=== PATIENT | male | born 1995 | race Caucasian/White ===

== ENCOUNTER 2017-05-15 03:34 | Emergency (ER) | payer BC ==
[~2017-05-15] VITALS: Ht 165.1 cm; Wt 83.9 kg
[2017-05-15 03:38] VITALS: BP_SYST 128
[2017-05-15 03:54] LABS: BILIRUBIN,URINE NEGATIVE (NEGATIVE); BLOOD, URINE 3+ (NEGATIVE); CLARITY/URINE CLEAR (CLEAR); COLOR,URINE YELLOW (YELLOW); GLUCOSE,URINE NEGATIVE (NEGATIVE); KETONES,URINE NEGATIVE (NEGATIVE); LEUKOCYTE ESTERASE ,URINE NEGATIVE (NEGATIVE); NITRITE, URINE NEGATIVE (NEGATIVE); PROTEIN URINE NEGATIVE (NEGATIVE); UROBILINOGEN,URINE 0.2 (0.2-1.0)
[2017-05-15] MEDS ORDERED: NACL 0.9% 1,000 ML IV ONE (03:57)
[2017-05-15] MEDS ORDERED: ONDANSETRON HCL 4 MG/2 ML VIAL IVP ONE (04:00)
[2017-05-15] MEDS ORDERED: MORPHINE 2 MG/ML INJ. SYRINGE IVP ONE (04:00)
[2017-05-15 04:09] LABS: BACTERIA,URINE RARE /HPF (None Seen); RBC,URINE 0-3 /HPF (0-3)
[2017-05-15 04:13] LABS: CALCIUM 9.2 mg/dL (8.4-11.0); CREATININE 1.09 mg/dL (0.55-1.30); POTASSIUM 3.5 mmol/L (3.5-5.1)
[2017-05-15 04:24] LABS: ALBUMIN 3.6 g/dL (3.4-4.8); TOTAL BILIRUBIN 0.5 mg/dL (0.0-1.0)
[2017-05-15 04:38] LABS: EOSINOPHILS # (AUTO) 0.3 K/uL (0.0-0.4); LYMPHOCYTES # (AUTO) 3.3 K/uL (1.0-5.5); MONOCYTES # (AUTO) 0.9 K/uL (0.0-1.0)
[2017-05-15 04:41] LABS: BASOPHILS % (AUTO) 0.3 % (0.0-2.0); EOSINOPHILS % (AUTO) 2.9 % (0.0-4.0); HEMATOCRIT 42.2 % (36-54); HEMOGLOBIN 13.6 g/dL (14.0-18.0); LYMPHOCYTES % (AUTO) 33.2 % (20.5-51.5); MEAN CORPUSCULAR HEMOGLOBIN 23 pg (27-31); MEAN CORPUSCULAR HGB CONC 32 % (32-36); MEAN CORPUSCULAR VOLUME 73 fL (79.0-98.0); MONOCYTES % (AUTO) 8.8 % (1.7-9.3); NEUTROPHILS # (AUTO) 5.3 K/uL (1.8-7.7); NEUTROPHILS % (AUTO) 54.8 % (40.0-70.0); PLATELET COUNT (AUTO) 264 K/uL (130-430); RED BLOOD CELL COUNT(AUTO) 5.82 MIL/uL (4.2-6.2); WHITE BLOOD COUNT (AUTO) 9.8 K/uL (4.8-10.8)
[2017-05-15 06:10] VITALS: BP_SYST 131
== END 2017-05-15 06:10 | disposition home or self-care (01) ==
LOC: SED 03:34
DX: K51.90 Ulcerative colitis, unspecified, without complications (principal)
CPT/HCPCS: 36415; 74176; 80053; 81000; 85025; 96361; 96374; 96375; 99285; J2270; J2405; J7030

== ENCOUNTER 2020-04-19 11:57 | Emergency (ER) | payer BC ==
[~2020-04-19] VITALS: Ht 165.1 cm; Wt 90.7 kg
[2020-04-19 12:35] VITALS: BP_SYST 145
[2020-04-19] MEDS ORDERED: LORazepam 1 MG TABLET PO ONE (12:45)
[2020-04-19 13:05] LABS: BASOPHILS % (AUTO) 0.2 % (0.0-2.0); C-REACTIVE PROTEIN QUANT 4.8 mg/dL (0-0.5); CALCIUM 7.8 mg/dL (8.4-11.0); CREATININE 1.04 mg/dL (0.55-1.30); EOSINOPHILS % (AUTO) 0.1 % (0.0-4.0); HEMATOCRIT 39.8 % (36-54); HEMOGLOBIN 12.4 g/dL (14.0-18.0); LYMPHOCYTES # (AUTO) 1.4 K/uL (1.0-5.5); LYMPHOCYTES % (AUTO) 22.2 % (20.5-51.5); MEAN CORPUSCULAR HEMOGLOBIN 21 pg (27-31); MEAN CORPUSCULAR HGB CONC 31 % (32-36); MEAN CORPUSCULAR VOLUME 69 fL (79.0-98.0); MONOCYTES # (AUTO) 0.8 K/uL (0.0-1.0); MONOCYTES % (AUTO) 13.2 % (1.7-9.3); NEUTROPHILS % (AUTO) 64.3 % (40.0-70.0); PLATELET COUNT (AUTO) 204 K/uL (130-430); POTASSIUM 3.3 mmol/L (3.5-5.1); RED BLOOD CELL COUNT(AUTO) 5.77 MIL/uL (4.2-6.2); RED CELL DISTRIBUTION WIDTH 17.3 % (9.0-15.0); WHITE BLOOD COUNT (AUTO) 6.3 K/uL (4.8-10.8)
[2020-04-19 15:21] VITALS: BP_SYST 145
== END 2020-04-19 15:22 | disposition home or self-care (01) ==
LOC: SED 11:57
DX: R50.9 Fever, unspecified (principal)
CPT/HCPCS: 36415; 71045; 76376; 80048; 85025; 86140; 86886; 86900; 86901; 99285

== ENCOUNTER 2020-04-21 10:45 | Emergency (ER) | payer BC, SELFPAY ==
[~2020-04-21] VITALS: Ht 165.1 cm; Wt 90.7 kg
[2020-04-21 11:10] VITALS: BP_SYST 129
[2020-04-21 12:11] VITALS: BP_SYST 129
== END 2020-04-21 12:11 | disposition home or self-care (01) ==
LOC: SED 10:45
DX: U07.1 COVID-19 (principal); J18.9 Pneumonia, unspecified organism
CPT/HCPCS: 99281

== ENCOUNTER 2020-04-23 04:04 | Emergency (ER) | payer BC, SELFPAY ==
[~2020-04-23] VITALS: Ht 165.1 cm; Wt 90.7 kg
[2020-04-23 04:05] VITALS: BP_SYST 112
--- NOTE | 2020-04-23 04:18 | NUR ---
Patient to ER bed 8 to gown for evaluation. Side rails up. Report given to Hima ARREAGA.
--- NOTE | 2020-04-23 04:40 | NUR ---
ED MD BONDS AT BEDSIDE EVALUATING PT
--- NOTE | 2020-04-23 04:43 | NUR ---
COVID SWAB PERFORMED AT BEDSIDE PT TOLERATED WELL SAMPLE SENT TO LAB AWAITING RESULTS
[2020-04-23] MEDS ORDERED: AZITHROMYCIN 500 MG/VIAL (ZITHROMAX) IV ONE (04:54)
[2020-04-23 04:59] LABS: BASOPHILS % (AUTO) 0.4 % (0.0-2.0); HEMATOCRIT 39.1 % (36-54); HEMOGLOBIN 12.5 g/dL (14.0-18.0); LYMPHOCYTES # (AUTO) 1.2 K/uL (1.0-5.5); LYMPHOCYTES % (AUTO) 15.7 % (20.5-51.5); MEAN CORPUSCULAR HEMOGLOBIN 22 pg (27-31); MEAN CORPUSCULAR HGB CONC 32 % (32-36); MONOCYTES # (AUTO) 0.7 K/uL (0.0-1.0); MONOCYTES % (AUTO) 9.7 % (1.7-9.3); NEUTROPHILS # (AUTO) 5.6 K/uL (1.8-7.7); NEUTROPHILS % (AUTO) 74.2 % (40.0-70.0); PLATELET COUNT (AUTO) 216 K/uL (130-430); RED CELL DISTRIBUTION WIDTH 16.9 % (9.0-15.0); WHITE BLOOD COUNT (AUTO) 7.6 K/uL (4.8-10.8)
[2020-04-23] MEDS ORDERED: AZITHROMYCIN 500 MG in NS 250 ML IV ONE (05:00)
[2020-04-23] MEDS ORDERED: ACETAMINOPHEN 500 MG TABLET PO ONE (05:00)
[2020-04-23] MEDS ORDERED: cefTRIAXone 1 GM IVPB PREMIX 50 ML IV ONE (05:00)
[2020-04-23 05:08] LABS: CALCIUM 8.4 mg/dL (8.4-11.0); CREATININE 0.97 mg/dL (0.55-1.30); POTASSIUM 3.7 mmol/L (3.5-5.1)
[2020-04-23 05:09] LABS: MEAN CORPUSCULAR VOLUME 67 fL (79.0-98.0)
[2020-04-23 05:14] LABS: INR 1.2 (0.80-1.20); PROTHROMBIN TIME 12.4 SECS (9.5-12.5)
[2020-04-23 05:15] LABS: ALBUMIN 3.1 g/dL (3.4-4.8); TOTAL BILIRUBIN 0.4 mg/dL (0.0-1.0)
--- NOTE | 2020-04-23 05:39 | NUR ---
PT TO BEDSIDE COMMODE AMBULATES WELL WITHOUT ASSISTANCE
[2020-04-23] MEDS ORDERED: methylPREDNISolone SOD SUCC 40 MG/ML VIAL ONE (05:41)
[2020-04-23 05:42] LABS: BILIRUBIN,URINE NEGATIVE (NEGATIVE); BLOOD, URINE 2+ (NEGATIVE); CLARITY/URINE CLEAR (CLEAR); COLOR,URINE YELLOW (YELLOW); GLUCOSE,URINE NEGATIVE (NEGATIVE); KETONES,URINE 3+ (NEGATIVE); LEUKOCYTE ESTERASE ,URINE NEGATIVE (NEGATIVE); NITRITE, URINE NEGATIVE (NEGATIVE); PROTEIN URINE 1+ (NEGATIVE); UROBILINOGEN,URINE 0.2 (0.2-1.0)
--- NOTE | 2020-04-23 05:42 | NUR ---
PT BACK IN BED LOW AND LOCKED BED RAILS UP WILL CONTINUE TO MONITOR
[2020-04-23] MEDS ORDERED: methylPREDNISolone SOD SUCC 40 MG/ML VIAL IVP ONE (05:45)
[2020-04-23 05:49] LABS: BACTERIA,URINE FEW /HPF (None Seen)
--- NOTE | 2020-04-23 06:18 | NUR ---
RT AT BEDSIDE DRAWING ABG LABS
[2020-04-23] MEDS ORDERED: NS 500 ML IV ONE (06:30)
--- NOTE | 2020-04-23 06:36 | NUR ---
PT UP TO BEDSDIE COMMODE AMBULATES WELL WITHOUT ASSISTANCE VITAL SIGNS STABLE WILL CONTINUE TO MONITOR
--- NOTE | 2020-04-23 06:38 | NUR ---
PT BACK IN BED LOW AND LOCKED WITH SIDE RAILS UP
--- NOTE | 2020-04-23 06:55 | NUR ---
VEHICLE LEASING AND RENTAL MANAGER AT BEDSIDE DRAWING LABS
--- NOTE | 2020-04-23 07:09 | NUR ---
BEDSIDE REPORT GIVEN TO TESTING SPECIALISTWHITLEY SILVA WHO WILL ASSUME CARE
--- NOTE | 2020-04-23 07:10 | NUR ---
Assumed care of patient, report received from WHITLEY Yee. Pt currently up to bedside commode. V/S stable, no distress noted.
--- NOTE | 2020-04-23 08:44 | NUR ---
Dr. Yu at bedside for GI consult.
--- NOTE | 2020-04-23 09:08 | NUR ---
Patient will be admitted to care of Dr. Xiao. Admitted to Med-surg unit. Will go to room 117A. Belongings list completed. Complete and up to date summary report printed. SBAR report to be given at bedside with opportunity for questions. IV site intact and patent.
--- NOTE | 2020-04-23 09:20 | NUR ---
Pt refusing transport to [facility], would like to sign out AMA. Dr. Koehler aware and at bedside with patient.
[2020-04-23] MEDS ORDERED: MESALAMINE 400 MG CAPSULE.DR PO SCH (09:30)
[2020-04-23] MEDS ORDERED: methylPREDNISolone SOD SUCC/PF 62.5 MG/ML VIAL IVP SCH (09:30)
--- NOTE | 2020-04-23 09:40 | NUR ---
Pt will sign out AMA, declining to be admitted at this time. Dr. Koehler ordered for pt to receive BAM prior to leaving. Pt is an outpatient, not admitted to hospital. Meets criteria for BAM infusion. BAM facts sheet provided to patient, all questions answered to pt's satisfaction. Pharmacy aware of order.
--- NOTE | 2020-04-23 09:42 | NUR ---
NOTIFIED DR. SHAW PT IS LEAVING A.
[2020-04-23 13:09] VITALS: BP_SYST 120
--- NOTE | 2020-04-23 13:10 | NUR ---
Patient does not wish to proceed with medical care recommended by Dr. Koehler. Patient given information related to possible complications, up to and including , which could occur as a result of leaving hospital at this time. Patient verbalizes understanding of risks involved leaving against medical advice. Patient has signed AMA form.
== END 2020-04-23 13:10 | disposition left against medical advice (07) ==
LOC: SED 04:04 → UNDOADMIN 06:20 → SMU 06:20 → SED 13:10
DX: U07.1 COVID-19 (principal); J18.9 Pneumonia, unspecified organism
CPT/HCPCS: 36415; 36600; 71045; 80053; 81000; 82550; 82728; 82803; 83605; 83615; 83880; 84484; 85025; 85379; 85384; 85610; 85730; 86140; 87040; 87426; 93005; 96365; 96367; 96375; 99285; J0456; J0696; J1030; J7050

== ENCOUNTER 2020-04-24 00:52 | Emergency (ER) | payer BC, SELFPAY ==
[~2020-04-24] VITALS: Ht 165.1 cm; Wt 90.7 kg
[2020-04-24 01:05] VITALS: BP_SYST 139
[2020-04-24] MEDS ORDERED: LORazepam 2 MG/ML VIAL IM ONE ×2 (04:15→05:00)
[2020-04-24 06:10] VITALS: BP_SYST 130
== END 2020-04-24 06:10 | disposition home or self-care (01) ==
LOC: SED 00:52
DX: U07.1 COVID-19 (principal); J18.9 Pneumonia, unspecified organism
CPT/HCPCS: 99283; J2060

== ENCOUNTER 2020-09-07 18:04 | Emergency (ER) | payer BC, SELFPAY ==
[~2020-09-07] VITALS: Ht 165.1 cm; Wt 102.1 kg
[2020-09-07 18:05] VITALS: BP_SYST 158
[2020-09-07] MEDS ORDERED: DIPHENHYDRAMINE HCL 25 MG CAPSULE PO ONE (18:30)
[2020-09-07] MEDS ORDERED: DIPHENHYDRAMINE INJ 50 MG/ML VIAL IM ONE (18:30)
[2020-09-07] MEDS ORDERED: methylPREDNISolone SOD SUCC/PF 62.5 MG/ML VIAL IM ONE (18:30)
[2020-09-07] MEDS ORDERED: methylPREDNISolone SOD SUCC/PF 62.5 MG/ML VIAL IVP ONE (18:30)
[2020-09-07] MEDS ORDERED: PRED20TA PO ×2 (19:51→19:55)
[2020-09-07] MEDS ORDERED: DIPH25CA83 PO (19:56)
[2020-09-07 20:04] VITALS: BP_SYST 158
== END 2020-09-07 20:04 | disposition home or self-care (01) ==
LOC: SED 18:04
DX: T63.441A Toxic effect of venom of bees, accidental (unintentional), initial encounter (principal); T78.2XXA Anaphylactic shock, unspecified, initial encounter; X58.XXXA Exposure to other specified factors, initial encounter
CPT/HCPCS: 96372; 99283; J2930; Q0163

== ENCOUNTER 2020-09-19 09:22 | Emergency (ER) | payer BC, SELFPAY ==
[~2020-09-19] VITALS: Ht 165.1 cm; Wt 90.7 kg
[~2020-09-19 09:22] MED LIST: DIPH25CA83 PO; PRED20TA PO
--- NOTE | 2020-09-19 09:25 | NUR ---
Placed in room 1 . Placed on library monitor, blood pressure machine and pulse oximeter. To gown for exam. Side rails up.
[2020-09-19 09:37] VITALS: BP_SYST 142
--- NOTE | 2020-09-19 09:38 | NUR ---
ER Dr. HASKINS at bedside examining patient.
--- NOTE | 2020-09-19 09:45 | NUR ---
XR AT BEDSIDE
--- NOTE | 2020-09-19 09:48 | NUR ---
PT CAME TO ER FOR RIGHT HAND PAIN. PT STRUCK A WALL WITH FULL FORCE. PT HAVING TROUBLE MOVING 5TH DIGIT.
[2020-09-19] MEDS ORDERED: IBUP-1969 PO (10:45)
[2020-09-19] MEDS ORDERED: ACET325T53 PO (10:45)
[2020-09-19] MEDS ORDERED: ACETAMINOPHEN 325 MG TABLET PO ONE (10:45)
[2020-09-19] MEDS ORDERED: IBUPROFEN 600 MG TABLET PO ONE (10:45)
--- NOTE | 2020-09-19 11:15 | NUR ---
Patient given written and verbal discharge instructions and verbalizes understanding. ER MD discussed with patient the results and treatment provided. Patient in stable condition. ID arm band removed. Rx of ACETAMINOPHEN, IBUPROFEN given. Patient educated on pain management and to follow up with PMD. Pain Scale 5/10. Opportunity for questions provided and answered. Medication side effect fact sheet provided.
[2020-09-19 11:16] VITALS: BP_SYST 114
== END 2020-09-19 11:15 | disposition home or self-care (01) ==
LOC: SED 09:22
DX: S62.306A Unspecified fracture of fifth metacarpal bone, right hand, initial encounter for closed fracture (principal); W22.01XA Walked into wall, initial encounter; Y93.89 Activity, other specified; Y92.89 Other specified places as the place of occurrence of the external cause; Y99.8 Other external cause status
CPT/HCPCS: 99284

== ENCOUNTER 2021-05-01 23:21 | Emergency (ER) | payer BC ==
[~2021-05-01] VITALS: Ht 165.1 cm; Wt 104.3 kg
[~2021-05-01 23:21] MED LIST changes: +ACET325T53 PO; +IBUP-1969 PO
[2021-05-01 23:35] VITALS: BP_SYST 119
--- NOTE | 2021-05-01 23:46 | NUR ---
Patient ambulatory to bed 1 for evaluation and treatment
--- NOTE | 2021-05-01 23:50 | NUR ---
ER at bedside examining patient.
[2021-05-02] MEDS ORDERED: MORPHINE 4 MG INJ. 4 MG/ML VIAL IM ONE
[2021-05-02] MEDS ORDERED: NACL 0.9% 1,000 ML IV ONE (00:15)
[2021-05-02 00:27] LABS: BASOPHILS # (AUTO) 0.1 K/uL (0.0-0.2); BASOPHILS % (AUTO) 0.7 % (0.0-2.0); EOSINOPHILS # (AUTO) 0.1 K/uL (0.0-0.4); EOSINOPHILS % (AUTO) 0.7 % (0.0-4.0); HEMATOCRIT 43.9 % (36-54); HEMOGLOBIN 14.1 g/dL (14.0-18.0); LYMPHOCYTES # (AUTO) 0.9 K/uL (1.0-5.5); MEAN CORPUSCULAR HEMOGLOBIN 25 pg (27-31); MEAN CORPUSCULAR HGB CONC 32 % (32-36); MEAN CORPUSCULAR VOLUME 76 fL (79.0-98.0); MONOCYTES % (AUTO) 7.7 % (1.7-9.3); NEUTROPHILS # (AUTO) 10.6 K/uL (1.8-7.7); NEUTROPHILS % (AUTO) 83.9 % (40.0-70.0); PLATELET COUNT (AUTO) 246 K/uL (130-430); RED BLOOD CELL COUNT(AUTO) 5.77 MIL/uL (4.2-6.2); RED CELL DISTRIBUTION WIDTH 15.4 % (9.0-15.0); WHITE BLOOD COUNT (AUTO) 12.7 K/uL (4.8-10.8)
[2021-05-02 00:42] LABS: CALCIUM 8.8 mg/dL (8.4-11.0); CREATININE 0.97 mg/dL (0.55-1.30); POTASSIUM 3.9 mmol/L (3.5-5.1)
[2021-05-02] MEDS ORDERED: KETOROLAC TROMETHAMINE 30 MG VIAL IVP ONE (00:45)
[2021-05-02 00:47] LABS: ALBUMIN 3.7 g/dL (3.4-4.8); TOTAL BILIRUBIN 0.4 mg/dL (0.0-1.0)
[2021-05-02] MEDS ORDERED: TAMS-11 PO (01:30)
[2021-05-02] MEDS ORDERED: HYDR-3917 PO (01:30)
[2021-05-02] MEDS ORDERED: IBUP-1971 PO (01:30)
[2021-05-02 01:39] LABS: BILIRUBIN,URINE 1+ (NEGATIVE); BLOOD, URINE 3+ (NEGATIVE); CLARITY/URINE CLEAR (CLEAR); COLOR,URINE YELLOW (YELLOW); GLUCOSE,URINE TRACE (NEGATIVE); KETONES,URINE TRACE (NEGATIVE); LEUKOCYTE ESTERASE ,URINE NEGATIVE (NEGATIVE); NITRITE, URINE POSITIVE (NEGATIVE); PROTEIN URINE 2+ (NEGATIVE); UROBILINOGEN,URINE 0.2 (0.2-1.0)
[2021-05-02] MEDS ORDERED: CIPR500T5 PO (01:47)
[2021-05-02] MEDS ORDERED: MORPHINE 4 MG INJ. 4 MG/ML VIAL IVP ONE (02:00)
--- NOTE | 2021-05-02 02:40 | NUR ---
Patient given written and verbal discharge instructions and verbalizes understanding. ER MD discussed with patient the results and treatment provided. Patient in stable condition. ID arm band removed. IV catheter removed intact and dressing applied, no active bleeding. Rx of given. Patient educated on pain management and to follow up with PMD. Pain Scale . Opportunity for questions provided and answered. Medication side effect fact sheet provided.
[2021-05-02 04:47] LABS: BACTERIA,URINE FEW /HPF (None Seen); WBC,URINE 0-3 /HPF (0-3)
[2021-05-02 04:48] LABS: MUCUS,URINE None Seen /LPF (None Seen)
[2021-05-02 07:21] VITALS: BP_SYST 119
== END 2021-05-02 02:40 | disposition home or self-care (01) ==
LOC: SED 23:21
DX: N20.0 Calculus of kidney (principal); N39.0 Urinary tract infection, site not specified; Z79.899 Other long term (current) drug therapy
CPT/HCPCS: 36415; 74176; 76376; 80053; 81000; 83690; 85025; 87086; 96361; 96372; 96374; 99285; J1885; J2270 ×2; J7030

== ENCOUNTER 2021-05-05 10:16 | Emergency (ER) | payer BC, SELFPAY ==
[~2021-05-05] VITALS: Ht 165.1 cm; Wt 104.3 kg
[~2021-05-05 10:16] MED LIST changes: +CIPR500T5 PO; +HYDR-3917 PO; +IBUP-1971 PO; +TAMS-11 PO
[2021-05-05 10:27] VITALS: BP_SYST 133
--- NOTE | 2021-05-05 10:31 | NUR ---
pt. bib mom with c/o left flank pain, was here on tuesday and told had a small kidney stone sent home with cipro and norco, yesterday pt. states was able to work had no pain but started again at 9pm and is now a 7/10 after taking norco, pt. has nausea but no emesis
--- NOTE | 2021-05-05 10:42 | NUR ---
ER in triage examining patient.
[2021-05-05] MEDS ORDERED: KETOROLAC TROMETHAMINE 60 MG/2 ML VIAL IM ONE (10:45)
[2021-05-05 11:30] LABS: BASOPHILS % (AUTO) 0.4 % (0.0-2.0); EOSINOPHILS # (AUTO) 0.2 K/uL (0.0-0.4); EOSINOPHILS % (AUTO) 1.9 % (0.0-4.0); HEMATOCRIT 44.1 % (36-54); HEMOGLOBIN 14.1 g/dL (14.0-18.0); LYMPHOCYTES # (AUTO) 0.8 K/uL (1.0-5.5); LYMPHOCYTES % (AUTO) 7.9 % (20.5-51.5); MEAN CORPUSCULAR HEMOGLOBIN 24 pg (27-31); MEAN CORPUSCULAR HGB CONC 32 % (32-36); MEAN CORPUSCULAR VOLUME 76 fL (79.0-98.0); MONOCYTES # (AUTO) 1.3 K/uL (0.0-1.0); MONOCYTES % (AUTO) 13.3 % (1.7-9.3); NEUTROPHILS # (AUTO) 7.4 K/uL (1.8-7.7); NEUTROPHILS % (AUTO) 76.5 % (40.0-70.0); PLATELET COUNT (AUTO) 210 K/uL (130-430); RED BLOOD CELL COUNT(AUTO) 5.79 MIL/uL (4.2-6.2); RED CELL DISTRIBUTION WIDTH 15.3 % (9.0-15.0); WHITE BLOOD COUNT (AUTO) 9.7 K/uL (4.8-10.8)
[2021-05-05 11:44] LABS: BILIRUBIN,URINE NEGATIVE (NEGATIVE); BLOOD, URINE 3+ (NEGATIVE); COLOR,URINE YELLOW (YELLOW); GLUCOSE,URINE NEGATIVE (NEGATIVE); KETONES,URINE NEGATIVE (NEGATIVE); LEUKOCYTE ESTERASE ,URINE NEGATIVE (NEGATIVE); NITRITE, URINE NEGATIVE (NEGATIVE); PROTEIN URINE TRACE (NEGATIVE); UROBILINOGEN,URINE 0.2 (0.2-1.0)
[2021-05-05 11:45] LABS: CLARITY/URINE SLIGHTLY CLOUDY (CLEAR)
[2021-05-05 12:03] LABS: CALCIUM 8.5 mg/dL (8.4-11.0); CREATININE 1.07 mg/dL (0.55-1.30); POTASSIUM 3.7 mmol/L (3.5-5.1)
[2021-05-05 12:09] LABS: ALBUMIN 3.4 g/dL (3.4-4.8); TOTAL BILIRUBIN 0.4 mg/dL (0.0-1.0)
[2021-05-05 12:31] LABS: BACTERIA,URINE FEW /HPF (None Seen); MUCUS,URINE 1+ /LPF (None Seen); WBC,URINE 0-3 /HPF (0-3)
[2021-05-05 12:47] LABS: C-REACTIVE PROTEIN QUANT 0.9 mg/dL (0-0.5)
[2021-05-05 13:05] VITALS: BP_SYST 129
--- NOTE | 2021-05-05 13:06 | NUR ---
Patient given written and verbal discharge instructions and verbalizes understanding. ER discussed with patient the results and treatment provided. Patient in stable condition. ID arm band removed. Patient educated on pain management and to follow up with PMD. Pain Scale 5. Opportunity for questions provided and answered.
== END 2021-05-05 13:05 | disposition home or self-care (01) ==
LOC: SED 10:16
DX: N23 Unspecified renal colic (principal); Z79.899 Other long term (current) drug therapy
CPT/HCPCS: 36415; 80053; 81000; 83605; 85025; 86140; 96372; 99283; J1885

== ENCOUNTER 2023-08-12 14:04 | Emergency (ER) | payer BC, OTHER ==
[~2023-08-12] VITALS: Ht 167.6 cm; Wt 86.2 kg
[2023-08-12 14:15] VITALS: BP_SYST 126; PULSE 84; RESP 18; TEMP 98.6; O2SAT 98
[2023-08-12 14:45] LABS: BILIRUBIN,URINE NEGATIVE (NEGATIVE); BLOOD, URINE 1+ (NEGATIVE); CLARITY/URINE CLEAR (CLEAR); COLOR,URINE YELLOW (YELLOW); GLUCOSE,URINE NEGATIVE (NEGATIVE); KETONES,URINE TRACE (NEGATIVE); LEUKOCYTE ESTERASE ,URINE NEGATIVE (NEGATIVE); NITRITE, URINE NEGATIVE (NEGATIVE); PROTEIN URINE NEGATIVE (NEGATIVE); UROBILINOGEN,URINE 0.2 (0.2-1.0)
[2023-08-12] MEDS ORDERED: IBUP-1969 PO (15:37)
[2023-08-12] MEDS ORDERED: HYDR-3917 PO (15:37)
[2023-08-12 15:46] VITALS: BP_SYST 126; PULSE 84; RESP 18; TEMP 98.6; O2SAT 98
== END 2023-08-12 15:45 | disposition home or self-care (01) ==
LOC: SED 14:04
DX: R10.9 Unspecified abdominal pain (principal); M54.9 Dorsalgia, unspecified; Z79.899 Other long term (current) drug therapy; Z79.2 Long term (current) use of antibiotics
CPT/HCPCS: 81001; 81003; 99284